=== PATIENT | female | born 1980 | race Caucasian/White ===

== ENCOUNTER 2022-08-29 13:46 | Emergency (ER) | payer MEDICAID ==
[2022-08-29] MEDS ORDERED: Acetaminophen/Codeine 300-30 MG Tab PO ONE (13:47)
[2022-08-29] MEDS ORDERED: Morphine 2 MG/ML SYRINGE IVPUSH ONE ×2 (14:38→17:24)
[2022-08-29] MEDS ORDERED: Sodium Chloride 0.9% 1,000 ML IV ONE ×2 (14:38→17:25)
[2022-08-29] MEDS ORDERED: Ketorolac 30 MG/ML SDV IVPUSH ONE (14:38)
[2022-08-29 14:59] LABS: ESTIMATED GFR 83 mL/min (>60)
[2022-08-29] MEDS ORDERED: Iopamidol 755 Mg/ML 75 ML Bottle IV ONE ×2 (16:10→22:11)
[2022-08-29] MEDS ORDERED: Potassium Chloride 20 MEQ Tab.ER PO ONE (17:24)
[2022-08-29] MEDS ORDERED: Vancomycin 125 MG Cap PO ONE (18:50)
[2022-08-29] MEDS ORDERED: metroNIDAZOLE 500 MG Tab PO ONE (18:51)
[2022-08-29 19:35] VITALS: BP 101/58; PULSE 82
== END 2022-08-29 19:11 | disposition home or self-care (01) ==
LOC: FB.ED 13:46
DX: K51.00 Ulcerative (chronic) pancolitis without complications (principal); R79.82 Elevated C-reactive protein (CRP); R70.0 Elevated erythrocyte sedimentation rate; Z88.8 Allergy status to other drugs, medicaments and biological substances; Z88.5 Allergy status to narcotic agent; Z79.899 Other long term (current) drug therapy
CPT/HCPCS: 36415; 74177; 80053; 83605; 83735; 85025; 85651; 86140; 96361; 96374; 96375; 96376; 99284; A9270; J1885; J2270; J7030; Q9967